=== PATIENT | male | born 1945 | race Caucasian/White ===

== ENCOUNTER 2024-12-14 14:11 | Emergency (ER) | payer OTHER, MEDICARE, BC ==
[~2024-12-14] VITALS: Ht 177.8 cm; Wt 85.9 kg
[2024-12-14] MEDS ORDERED: ZOCOR40 MG (15:42)
[2024-12-14] MEDS ORDERED: DOXAZOSIN MESYLA2 MG (15:42)
[2024-12-14] MEDS ORDERED: PROSCAR5 MG (15:42)
[2024-12-14] MEDS ORDERED: XARELTO10 MG PO (16:43)
[2024-12-14] MEDS ORDERED: DIPHTH,PERTUSS(ACELL),TET VAC 0.5 ML SYRINGE IM ONE (17:15)
[2024-12-14 17:32] VITALS: BP 150/90
== END 2024-12-14 17:37 | disposition home or self-care (01) ==
LOC: ED 14:11
DX: S51.812A Laceration without foreign body of left forearm, initial encounter (principal); I48.91 Unspecified atrial fibrillation; Z79.01 Long term (current) use of anticoagulants; Z79.899 Other long term (current) drug therapy; W26.8XXA Contact with other sharp object(s), not elsewhere classified, initial encounter
CPT/HCPCS: 90471; 90715; 99282-25